=== PATIENT | male | born 1995 | race African-American/Black ===

== ENCOUNTER 2017-06-21 11:17 | Emergency (ER) | payer BC ==
--- NOTE | 2017-06-21 12:22 | RAD ---
RADIOGRAPH CHEST 2 VIEWS: HISTORY: 22-year-old male with productive cough. FINDINGS: The lungs are clear. The cardiomediastinal silhouette and hilar shadows are normal. There is no ple ural effusion. The osseous structures appear normal. There is no pneumothorax. IMPRESSION: Normal. aaron POS: PETER
[2017-06-21] MEDS ORDERED: Dexamethasone 4 mg/ml Vial ONE (12:28)
== END 2017-06-21 12:32 | disposition home or self-care (01) ==
LOC: ERS 11:17
DX: J30.2 Other seasonal allergic rhinitis (principal); J45.909 Unspecified asthma, uncomplicated; E66.9 Obesity, unspecified; F17.210 Nicotine dependence, cigarettes, uncomplicated
CPT/HCPCS: 71046; J1100

== ENCOUNTER 2018-05-21 18:33 | Emergency (ER) | payer BC ==
--- NOTE | 2018-05-21 18:58 | RAD ---
LEFT KNEE: 05/21/18 Four views. HISTORY: Knee pain. No fracture. No joint effusion. No osseous abnormality. IMPRESSION: No acute findings. POS: [facility]
== END 2018-05-21 19:27 | disposition home or self-care (01) ==
LOC: ERS 18:33
DX: S83.92XA Sprain of unspecified site of left knee, initial encounter (principal); J45.909 Unspecified asthma, uncomplicated; F17.210 Nicotine dependence, cigarettes, uncomplicated; E66.9 Obesity, unspecified; W01.0XXA Fall on same level from slipping, tripping and stumbling without subsequent striking against object, initial encounter

== ENCOUNTER 2018-07-22 06:31 | Emergency (ER) | payer BC ==
--- NOTE | 2018-07-22 08:41 | RAD ---
EXAM: Chest Two Views 07/22/2018 8:38 AM HISTORY: Cough and congestion COMPARISON: June 21, 2017 FINDINGS: Heart: Normal in size and contour. Pulmonary vessels: Normal. Costophrenic angles: Clear. Lungs: No confluent pneumonia, overt edema, pleural effusion, or other acute process. Pneumothorax: None. Osseous structures:Intact. Additional findings: None. IMPRESSION: No significant acute intrathoracic disease.
[2018-07-22] MEDS ORDERED: Dexamethasone 4 mg/ml Vial ONE ×2 (08:51)
== END 2018-07-22 09:32 | disposition home or self-care (01) ==
LOC: ERS 06:31
DX: J45.901 Unspecified asthma with (acute) exacerbation (principal); F17.210 Nicotine dependence, cigarettes, uncomplicated; E66.9 Obesity, unspecified; Z71.6 Tobacco abuse counseling
CPT/HCPCS: 71046; 94640; 99406; J1100; J7620

== ENCOUNTER 2020-07-03 13:18 | Observation (INO) | payer BC, SELFPAY ==
[~2020-07-03 13:18] MED LIST: Iopamidol-370 76% 500 ML 1 ML ONE
[2020-07-03] MEDS ORDERED: Ondansetron ODT 4 MG TAB PO PRN (14:33)
[2020-07-03] MEDS ORDERED: Ondansetron PF 4 MG/2 ML Vial IVP PRN (14:33)
[2020-07-03] MEDS ORDERED: Acetaminophen 650 MG Suppository PR PRN (14:33)
[2020-07-03] MEDS ORDERED: Acetaminophen 325 MG TAB PO PRN (14:33)
[2020-07-03] MEDS ORDERED: hydrALAZINE 20 MG/ML VIAL SLOW IVP PRN (14:37)
[2020-07-03] MEDS ORDERED: Aspirin Chewable 81 MG TAB ONE (15:02)
[2020-07-03 15:26] LABS: #Basophils 0.1 thou/uL (0.0-0.2); #Eosinphils 0.3 thou/uL (0.0-0.7); #Lymphocytes 2.1 thou/uL (1.20-3.40); #Monocytes 0.6 thou/uL (0.11-0.59); #Neutrophils 5.1 thou/uL (1.40-6.50); %Basophils 0.9 % (0.0-1.0); %Eosinophils 3.1 % (0.0-10.0); %Lymphocytes 26.2 % (21.0-51.0); %Monocytes 6.8 % (0.0-10.0); Hemoglobin 14.2 g/dL (14.0-18.0); Mean Corpuscular HGB CONC 33.8 g/dL (32.0-36.0); Mean Corpuscular Hemoglobin 29.8 pg (27.0-31.0); Mean Corpuscular Volume 88.1 fL (78.0-98.0); Mean Platelet Volume 8.3 fL (7.4-10.4); Platelet Count 201 thou/uL (130-400); Red Blood Cell (RBC) Count 4.78 mill/uL (4.70-6.10); White Blood Cell (WBC) Count 8.1 thou/uL (4.8-10.8)
[2020-07-03 15:48] LABS: Hemoglobin A1c 5.4 % (4.0-6.0)
[2020-07-03 15:49] LABS: ALT (SGPT) 32 U/L (8-55); AST (SGOT) 25 U/L (5-34); Albumin 4.2 g/dL (3.5-5.0); Alkaline Phosphatase 102 U/L (40-110); Anion Gap 11 mmol/L (10-20); BUN (Urea Nitrogen) 10 mg/dL (8.9-20.6); Bilirubin, Total 0.5 mg/dL (0.2-1.2); Calc. Creatinine Clearance 0 mL/min (70-130); Calcium 8.5 mg/dL (7.8-10.44); Carbon Dioxide 30 mmol/L (22-29); Chloride 105 mmol/L (98-107); Globulin 2.8 g/dL (2.4-3.5); Glucose 82 mg/dL (70-105); Potassium 4.1 mmol/L (3.5-5.1); Sodium 142 mmol/L (136-145)
[2020-07-03 17:37] VITALS: BMI 57.6
[2020-07-04 03:16] LABS: SARS-CoV-2 PCR by NAA Not Detected (NotDetected)
[2020-07-04 08:49] VITALS: BP 140/72; TEMP 97.9
[2020-07-04 13:27] LABS: Cardiac Risk 5.5 (Less than 4.5)
== END 2020-07-04 17:24 | disposition home or self-care (01) ==
LOC: ERS 13:18 → 2SE 14:02
PROVIDERS: ADMIT Family Medicine; ATTEND Family Medicine
DX: H54.62 Unqualified visual loss, left eye, normal vision right eye (principal); I10 Essential (primary) hypertension; F17.210 Nicotine dependence, cigarettes, uncomplicated; F12.10 Cannabis abuse, uncomplicated; E66.9 Obesity, unspecified; Z68.43 Body mass index [BMI] 50.0-59.9, adult; Z20.822 Contact with and (suspected) exposure to COVID-19
CPT/HCPCS: 70496; 70498; 80053; 80061; 83036; 84443; 84484; 85025; 85610; 87635; 93005; 93306; G0378; Q9967; U0003; U0005

== ENCOUNTER 2023-04-19 10:07 | Emergency (ER) | payer OTHER ==
[2023-04-19] MEDS ORDERED: Dexamethasone 10 MG/ML VIAL ONE (10:55)
[2023-04-19 11:19] LABS: SARS-CoV-2 NAA Rapid Test Not Detected (NotDetected)
[2023-04-19] MEDS ORDERED: Albuterol 2.5 MG (0.5 mL) NEB ONE (11:25)
[2023-04-19] MEDS ORDERED: Ipratropium/Albuterol 3 ML NEB ONE (11:25)
== END 2023-04-19 12:26 | disposition home or self-care (01) ==
LOC: ERS 10:07
DX: J45.901 Unspecified asthma with (acute) exacerbation (principal); F17.290 Nicotine dependence, other tobacco product, uncomplicated; E66.9 Obesity, unspecified
CPT/HCPCS: 71045; 94640; J1100; J7611; J7620

== ENCOUNTER 2024-03-28 13:05 | Emergency (ER) | payer SELFPAY ==
[2024-03-28] MEDS ORDERED: Ipratropium/Albuterol 3 ML NEB ONE (13:47)
[2024-03-28] MEDS ORDERED: Dexamethasone 10 MG/ML VIAL ONE (13:47)
== END 2024-03-28 15:08 | disposition home or self-care (01) ==
LOC: ERS 13:05
DX: J18.9 Pneumonia, unspecified organism (principal); J45.909 Unspecified asthma, uncomplicated; F17.290 Nicotine dependence, other tobacco product, uncomplicated
CPT/HCPCS: 71046; 87428; 96372; J1100; J7620

== ENCOUNTER 2024-12-01 09:40 | Emergency (ER) | payer SELFPAY ==
[2024-12-01] MEDS ORDERED: predniSONE 20 MG TAB ONE (10:19)
== END 2024-12-01 11:34 | disposition home or self-care (01) ==
LOC: ERS 09:40
DX: J45.901 Unspecified asthma with (acute) exacerbation (principal); F17.210 Nicotine dependence, cigarettes, uncomplicated; F17.290 Nicotine dependence, other tobacco product, uncomplicated; Z55.6 Problems related to health literacy
CPT/HCPCS: 71046; 94640; J7512; J7620

== ENCOUNTER 2025-01-11 09:45 | Emergency (ER) | payer SELFPAY | END 2025-01-11 10:58 | disposition home or self-care (01) | LOC: ERS 09:45 | DX: M25.561 Pain in right knee (principal); R03.0 Elevated blood-pressure reading, without diagnosis of hypertension; F17.210 Nicotine dependence, cigarettes, uncomplicated | CPT/HCPCS: 99283 ==